=== PATIENT | male | born 1970 | race Caucasian/White ===

== ENCOUNTER 2021-07-01 09:16 | Emergency (ER) | payer OTHER, SELFPAY ==
--- NOTE | ~2021-07-01 | XR_ITS ---
EXAMINATION: THORACIC SPINE AND LEFT HAND CLINICAL INFORMATION: Pain COMPARISON: None TECHNIQUE: Three-view thoracic spine and 4 view left hand FINDINGS: There is no evidence of acute thoracic spine fracture. Pedicles are intact. No paraspinal line bulge. There is multilevel disc space spurring present most prominent inferiorly. No suspicious destructive bony lesions. There is no evidence of acute fracture or dislocation of the left hand. Joint spaces are maintained. There is some degenerative spurring seen about the second and third distal interphalangeal joints. There is some degenerative change with spurring seen involving the fifth proximal interphalangeal joint with some soft tissue swelling. No erosive changes are evident. XR/XR thoracic spine 3V IMPRESSION: No acute fracture or destructive bony lesion of the thoracic spine. Multilevel thoracic spine spurring. No acute fracture or dislocation of the left hand. Degenerative joint disease as described.
--- NOTE | ~2021-07-01 | CT_ITS ---
EXAMINATION: CT HEAD WITHOUT CONTRAST CLINICAL INFORMATION: Paresthesias COMPARISON: None TECHNIQUE: Contiguous axial imaging was performed from the skull base to vertex without intravenous administration of contrast. This CT examination was performed using dose optimization techniques as appropriate, variously including the following: *Automated exposure control *Adjustment of mA and/or kV according to patient size (this includes techniques or standardized protocols for targeted exams where dose is matched to indication/reason for exam; i.e. extremities or head) *Use of iterative reconstruction technique DLP: 637 mGy-cm FINDINGS: There is no evidence of acute intracranial hemorrhage or territorial infarction. No abnormal mass effect or midline shift is seen. Edwards to white matter differentiation is well preserved. No extra-axial fluid collections are identified. The ventricles are normal in size. There is no abnormal attenuation within the brain parenchyma. The osseous structures and soft tissues are normal. Mastoid air cells are well aerated as are the majority of the paranasal sinuses. There are a few right maxillary mucous retention cyst. The turbinates are boggy bilaterally. CT/CT head/brain wo con IMPRESSION: No acute intracranial pathology.
--- NOTE | ~2021-07-01 | XR_ITS ---
EXAMINATION: THORACIC SPINE AND LEFT HAND CLINICAL INFORMATION: Pain COMPARISON: None TECHNIQUE: Three-view thoracic spine and 4 view left hand FINDINGS: There is no evidence of acute thoracic spine fracture. Pedicles are intact. No paraspinal line bulge. There is multilevel disc space spurring present most prominent inferiorly. No suspicious destructive bony lesions. There is no evidence of acute fracture or dislocation of the left hand. Joint spaces are maintained. There is some degenerative spurring seen about the second and third distal interphalangeal joints. There is some degenerative change with spurring seen involving the fifth proximal interphalangeal joint with some soft tissue swelling. No erosive changes are evident. XR/XR hand LT min 3V IMPRESSION: No acute fracture or destructive bony lesion of the thoracic spine. Multilevel thoracic spine spurring. No acute fracture or dislocation of the left hand. Degenerative joint disease as described.
[2021-07-01 09:20] VITALS: BP 151/98; PULSE 83; RESP 18; TEMP 36.9; O2SAT 99; BMI 31.1
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
[2021-07-01 10:54] VITALS: BP 122/83; PULSE 70; RESP 16; TEMP 36.9; O2SAT 97
[2021-07-01] MEDS: predniSONE 20 MG TABLET 40 MG PO (10:59)
[2021-07-01] MEDS: Cyclobenzaprine HCl 10 MG TABLET PO (10:59)
[2021-07-01 11:30] VITALS: BP 115/80; PULSE 72; RESP 18; TEMP 36.9; O2SAT 98
== END 2021-07-01 11:50 | disposition home or self-care (01) ==
PROVIDERS: Emergency Provider Emergency Medicine
DX: R20.2 Paresthesia of skin (principal); G56.02 Carpal tunnel syndrome, left upper limb; S29.019A Strain of muscle and tendon of unspecified wall of thorax, initial encounter; V03.00XA Pedestrian on foot injured in collision with car, pick-up truck or van in nontraffic accident, initial encounter; Y93.01 Activity, walking, marching and hiking; Y92.481 Parking lot as the place of occurrence of the external cause; Y99.9 Unspecified external cause status
CPT/HCPCS: 70450; 72072; 73130; 99284